=== PATIENT | male | born 1950 | race Caucasian/White ===

== ENCOUNTER → 2017-06-12 | Outpatient (CLI) | payer OTHER, MEDICARE ==
--- NOTE | 2017-06-12 13:00 | DIAGNOSTIC IMAGING REPORT ---
RIGHT KNEE 4 OR MORE CLINICAL HISTORY: RT KNEE PAIN Right COMPARISON STUDY: Right knee 02/12/2015. FINDINGS: No fracture or dislocation within the bilateral knees. Only seen on the lateral view there is a 1.5 cm linear radiopaque metallic foreign body overlying the distal shaft of the femur. This remains unchanged. Mild vascular calcifications. No significant right knee effusion. Mild cartilage space narrowing and tiny marginal osteophytes at the medial compartment of the right knee. This remains unchanged. There are also tiny marginal osteophytes at the patellofemoral joint. IMPRESSION: 1. No change in the mild right knee osteoarthritis. 2. A 1.5 cm metallic foreign body within the distal right thigh. This is also unchanged Electronically signed by: Constantine Fitch M.D. 06/12/2017 12:59 PM Dictated Date/Time: 06/12/2017 12:56 PM
== END | disposition home or self-care (01) ==
LOC: C.RDSM 11:30
PROVIDERS: ATTEND Physician Assistant
DX: M25.561 Pain in right knee (principal)

== ENCOUNTER → 2017-09-08 | Outpatient (CLI) | payer OTHER, MEDICARE ==
--- NOTE | 2017-09-08 11:41 | DIAGNOSTIC IMAGING REPORT ---
R WRIST FOR VIEWS ROUTINE CLINICAL HISTORY: Right wrist pain COMPARISON: None. DISCUSSION: No acute fractures or dislocations are visualized. There are few tiny particular calcifications located volar to the proximal carpal row on the lateral view. There is a suspected cyst within the hamate. There are mild degenerative changes the level of the navicular trapezium articulation. IMPRESSION: 1. Mild degenerative change 2. Hamate cyst 3. No acute fractures Electronically signed by: Octavio Leslie M.D. 09/08/2017 11:39 AM Dictated Date/Time: 09/08/2017 11:38 AM
--- NOTE | 2017-09-08 13:31 | DIAGNOSTIC IMAGING REPORT ---
RIGHT HAND 3 VIEWS CLINICAL HISTORY: Right hand pain. FINDINGS: 3 views of the right hand are obtained. No prior studies are available for comparison at the time of dictation. The skeletal structures are well mineralized for age. No fracture is seen. There is mild degenerative narrowing at the radiocarpal articulation. Cystic degenerative change is identified in the hamate. Arthritic change is seen along the radial carpal row and at the first carpometacarpal articulation. Mild osteoarthritic change is also seen at the first metacarpophalangeal joint and involving the interphalangeal joints, distal greater than proximal. A large spur arises from the third metacarpal head. No erosive change is seen. Mild soft tissue swelling is suggested in the fingers. IMPRESSION: Arthritic change as above. No acute bony abnormality is identified. Electronically signed by: Mor Castillo M.D. 09/08/2017 1:29 PM Dictated Date/Time: 09/08/2017 1:18 PM
== END | disposition home or self-care (01) ==
LOC: C.RDSM 12:15
PROVIDERS: ATTEND Family Medicine
DX: M18.9 Osteoarthritis of first carpometacarpal joint, unspecified (principal); M79.646 Pain in unspecified finger(s); M25.539 Pain in unspecified wrist; M85.441 Solitary bone cyst, right hand